=== PATIENT | female | born 1985 | race African-American/Black ===

== ENCOUNTER 2016-05-28 15:28 | Emergency (ER) | payer MEDICAID ==
[~2016-05-28] VITALS: Ht 170.2 cm; Wt 80.0 kg
[2016-05-28] MEDS ORDERED: ONDANSETRON HCL 4MG/2ML VIAL IV ONE (16:00)
[2016-05-28] MEDS ORDERED: SODIUM CHLORIDE 0.9% 1,000 ML IV ONE ×2 (16:00→17:15)
[2016-05-28 16:21] LABS: CLARITY URINE TURBID (CLEAR); COLOR URINE YELLOW (YELLOW); GLUCOSE URINE NEGATIVE (NEGATIVE); KETONES URINE 3+ (NEGATIVE); LEUKOCYTE ESTERASE URINE 1+ (NEGATIVE); NITRITE URINE NEGATIVE (NEGATIVE); OCCULT BLOOD URINE NEGATIVE (NEGATIVE); PH URINE 6.5 (4.5-8.0); PROTEIN URINE NEGATIVE (NEGATIVE); SPECIFIC GRAVITY URINE 1.016 (1.005-1.030)
[2016-05-28 16:38] LABS: RBC URINE 0-2 /hpf (0-2)
[2016-05-28 16:39] LABS: AMORPHOUS SEDIMENT URINE 1+ /lpf; BACTERIA URINE 2+; MUCUS URINE 1+ /lpf (< = 2+); SQUAMOUS EPITHELIAL CELL URINE 2+ /lpf (RARE/1+)
[2016-05-28] MEDS ORDERED: DEXT 5%/0.45% NACL 500 ML IV ONE (17:15)
[2016-05-28 19:06] VITALS: BP 108/64
== END 2016-05-28 20:36 | disposition home or self-care (01) ==
LOC: ER 15:45
DX: O21.0 Mild hyperemesis gravidarum (principal); O26.891 Other specified pregnancy related conditions, first trimester; E86.0 Dehydration; O23.41 Unspecified infection of urinary tract in pregnancy, first trimester; N39.0 Urinary tract infection, site not specified; Z3A.01 Less than 8 weeks gestation of pregnancy
CPT/HCPCS: 81001; 96361; 96374; 99284; C1893; J2405; J7030; Z7610